=== PATIENT | male | born 1970 | race African-American/Black ===

== ENCOUNTER 2018-03-01 20:00 | Emergency (ER) | payer OTHER ==
[~2018-03-01] VITALS: Ht 177.8 cm; Wt 65.8 kg
[~2018-03-01 20:00] MED LIST: RISPERDAL 3 MG T3 M1 PO; [UNRECOGNIZED DRUG - REMARK]
[2018-03-01 20:38] LABS: ABSOLUTE NEUTROPHILS 3.4 thou/uL (1.4-8.2); BASOPHILS 0.7 % (0.0-2.0); EOSINOPHILS 1.1 % (0.0-3.0); HEMATOCRIT 40.6 % (42.0-52.0); HEMOGLOBIN 13.5 gm/dL (14.0-18.0); LYMPHOCYTES 39.8 % (24.0-44.0); MCH 30.6 pg (26.0-34.0); MCHC 33.3 g/dL (28.0-37.0); MCV 91.9 fL (80.0-100.0); MONOCYTES 8.1 % (1.0-8.0); PLATELET COUNT 255 thou/uL (150-400); POLYS 50.3 % (36.0-66.0); RBC 4.41 mil/uL (4.50-6.00); RDW 14.3 % (10.5-14.5); WBC 6.7 thou/uL (4.0-11.0)
[2018-03-01 20:46] LABS: CREATININE 0.9 mg/dL (0.7-1.3); POTASSIUM 3.8 mmol/L (3.5-5.1)
[2018-03-01 20:53] LABS: AMP/METHAMP Negative (Negative); BARBITURATES Negative (Negative); BENZODIAZEPINES Negative (Negative); COCAINE Negative (Negative); METHADONE Negative (Negative); OPIATES Negative (Negative); PCP Negative (Negative)
[2018-03-02 10:47] VITALS: BP 101/65
== END 2018-03-02 10:49 | disposition short-term general hospital (02) ==
LOC: ER 20:00
PROVIDERS: Student in an Organized Health Care Education/Training Program
DX: R45.851 Suicidal ideations (principal); F20.9 Schizophrenia, unspecified; Z88.8 Allergy status to other drugs, medicaments and biological substances; Z72.89 Other problems related to lifestyle

== ENCOUNTER 2018-03-12 19:06 | Emergency (ER) | payer OTHER ==
[~2018-03-12] VITALS: Ht 177.8 cm; Wt 68.0 kg
[2018-03-12] MEDS ORDERED: AMOXICILLIN 50500 M1 PO (23:43)
[2018-03-12] MEDS ORDERED: TRAMADOL 50 MG50 MG PO (23:43)
[2018-03-13 00:43] VITALS: BP 108/65
== END 2018-03-13 00:44 | disposition home or self-care (01) ==
LOC: ER 19:06
DX: S02.40EA Zygomatic fracture, right side, initial encounter for closed fracture (principal); S02.81XA Fracture of other specified skull and facial bones, right side, initial encounter for closed fracture; S02.40CA Maxillary fracture, right side, initial encounter for closed fracture; F20.9 Schizophrenia, unspecified; F17.210 Nicotine dependence, cigarettes, uncomplicated; Z88.8 Allergy status to other drugs, medicaments and biological substances; Y08.89XA Assault by other specified means, initial encounter; Y93.89 Activity, other specified; Y92.89 Other specified places as the place of occurrence of the external cause; Y99.8 Other external cause status

== ENCOUNTER 2018-03-16 04:26 | Emergency (ER) | payer OTHER ==
[~2018-03-16] VITALS: Ht 177.8 cm; Wt 68.0 kg
[~2018-03-16 04:26] MED LIST changes: +AMOXICILLIN 50500 M1 PO; +TRAMADOL 50 MG50 MG PO
[2018-03-16 04:33] VITALS: BP 126/85
[2018-03-16] MEDS ORDERED: TYLENOL EXTRA500 MG PO (04:37)
== END 2018-03-16 04:48 | disposition home or self-care (01) ==
LOC: ER 04:26
DX: S05.41XD Penetrating wound of orbit with or without foreign body, right eye, subsequent encounter (principal); Y04.8XXD Assault by other bodily force, subsequent encounter; F20.9 Schizophrenia, unspecified; F17.210 Nicotine dependence, cigarettes, uncomplicated; Z88.8 Allergy status to other drugs, medicaments and biological substances

== ENCOUNTER 2018-04-06 22:42 | Emergency (ER) | payer OTHER ==
[~2018-04-06] VITALS: Ht 175.3 cm; Wt 70.3 kg
[~2018-04-06 22:42] MED LIST changes: +TYLENOL EXTRA500 MG PO
[2018-04-06 22:48] VITALS: BP 127/88
== END 2018-04-06 23:36 | disposition home or self-care (01) ==
LOC: ER 22:42
DX: R05 Cough (principal); F20.9 Schizophrenia, unspecified; F17.210 Nicotine dependence, cigarettes, uncomplicated; Z88.8 Allergy status to other drugs, medicaments and biological substances

== ENCOUNTER → 2019-06-06 | Emergency (ER) | payer OTHER ==
[~2019-06-06] VITALS: Ht 180.3 cm; Wt 65.8 kg
[~2019-06-06] MED LIST changes: +INVEGA SUS234 MG/1.5 IM
[2019-06-06 04:35] VITALS: BP 89/54
== END ==
LOC: ER 04:24
DX: Z53.21 Procedure and treatment not carried out due to patient leaving prior to being seen by health care provider (principal)